=== PATIENT | female | born 1970 | race Caucasian/White ===

== ENCOUNTER → 2017-11-06 | Outpatient (CLI) | payer BC ==
[2017-11-06 11:08] LABS: Basophils # (A) 0.1 k/uL (0-0.2); Basophils % (A) 1 %; Eosinophils # (A) 0.3 k/uL (0-0.7); Eosinophils % (A) 4 %; HCT 38.3 % (34.0-46.0); HGB 13.3 gm/dL (11.4-16.0); Lymphocytes # (A) 2.3 k/uL (1.0-4.8); Lymphocytes % (A) 31 %; MCH 29.2 pg (25.0-35.0); MCHC 34.6 g/dL (31.0-37.0); MCV 84.3 fL (80.0-100.0); Mean Platelet Volume 6.5; Monocytes # (A) 0.4 k/uL (0-1.0); Monocytes % (A) 6 %; Neutrophils # (A) 4.2 k/uL (1.3-7.7); Neutrophils % (A) 56 %; Platelet Count 351 k/uL (150-450); RBC 4.54 m/uL (3.80-5.40); RDW 12.7 % (11.5-15.5); WBC 7.5 k/uL (3.8-10.6)
[2017-11-06 11:14] LABS: Anion Gap 10 mmol/L; Blood Urea Nitrogen 12 mg/dL (7-17); Carbon Dioxide 27 mmol/L (22-30); Chloride 103 mmol/L (98-107); Glucose 82 mg/dL (74-99); Potassium 4.1 mmol/L (3.5-5.1); Sodium 140 mmol/L (137-145)
== END ==
LOC: LABPAT 10:31
PROVIDERS: ATTEND Obstetrics & Gynecology
DX: Z01.818 Encounter for other preprocedural examination (principal); I10 Essential (primary) hypertension; N94.6 Dysmenorrhea, unspecified
CPT/HCPCS: 80051; 82565; 82947; 84520; 85025; 87086; 93005

== ENCOUNTER 2017-11-15 05:47 | Observation (INO) | payer BC ==
[2017-11-04 09:01] VITALS: BMI 33.6
[~2017-11-15 05:47] MED LIST: DEXAMETHASONE SOD PHOSPHATE 10 MG/ML 1 ML VIAL IV ONE; MIDAZOLAM 2 MG/2 ML VIAL IV PRN; MORPHINE SULFATE 2 MG/ML SYRINGE IV PRN; SCOPOLAMINE 1.5MG/72HR PATCH TRANSDERM ONE; fentaNYL (PF) 50 MCG/ML 2 ML AMP IV PRN
[2017-11-15] MEDS: LACTATED RINGERS 1,000 ML IV SCH ×4 (06:41→23:38)
[2017-11-15] MEDS: ONDANSETRON ODT 4 MG TAB PO ONE ×2 (06:53→12:48)
[2017-11-15] MEDS: ceFAZolin IN SWFI 2 GM/20 ML SYRINGE IVP ONE ×2 (07:20→07:45)
[2017-11-15] MEDS ORDERED: BUPIVACAIN-EPI 0.5%-1:200,000 30 ML VIAL SQ ONE ×2 (07:21→09:48)
[2017-11-15] MEDS ORDERED: fentaNYL (PF) 50 MCG/ML 2 ML AMP ONE (07:30)
[2017-11-15] MEDS ORDERED: GLYCOPYRROLATE 0.2 MG/ML 2 ML VIAL ONE (07:30)
[2017-11-15] MEDS ORDERED: LIDOCAINE 1% INJ 10MG/ML (20 ML MDV) ONE (07:30)
[2017-11-15] MEDS ORDERED: MIDAZOLAM 2 MG/2 ML VIAL ONE (07:30)
[2017-11-15] MEDS ORDERED: PROPOFOL 10 MG/ML 20 ML VIAL IV ONE (07:30)
[2017-11-15] MEDS ORDERED: ePHEDrine SULFATE/0.9% NACL/PF 50 MG/5 ML SYRINGE IV ONE (07:30)
[2017-11-15] MEDS ORDERED: ROCURONIUM BROMIDE 10 MG/ML 10 ML VIAL IV ONE (07:30)
[2017-11-15] MEDS ORDERED: NEOSTIGMINE 1 MG/ML 10 ML VIAL ONE (07:30)
[2017-11-15] MEDS ORDERED: MORPHINE SULFATE 10 MG/ML SYRINGE ONE (07:30)
[2017-11-15] MEDS ORDERED: LACTATED RINGERS 1,000 ML IV ONE (08:48)
[2017-11-15] MEDS ORDERED: Acetaminophen-Codeine 300-30mg TAB PO PRN ×2 (09:49)
[2017-11-15] MEDS ORDERED: SIMETHICONE 80 MG CHEWABLE PO PRN (09:49)
[2017-11-15] MEDS ORDERED: METOCLOPRAMIDE 5 MG/ML 2 ML VIAL IVP PRN (09:49)
[2017-11-15] MEDS ORDERED: IBUPROFEN 600 MG TAB PO PRN (09:49)
[2017-11-15] MEDS ORDERED: diphenhydrAMINE 50 MG/ML 1 ML VIAL IVP PRN (09:49)
--- NOTE | 2017-11-15 09:49 | P.OP ---
Date of Procedure: 11/15/17 Preoperative Diagnosis: Dysmenorrhea Hypertension Family history of breast cancer Postoperative Diagnosis: Same Procedure(s) Performed: Robotic-assisted laparoscopic assisted vaginal hysterectomy with bilateral salpingo-oophorectomy Anesthesia: JUANA Surgeon: Linda Munoz Technical Consultant #1: Bhavya Webster Estimated Blood Loss (ml): 10 IV fluids (ml): 1,400 Urine output (ml): 450 Pathology: other (Uterus, bilateral fallopian tubes and ovaries) Condition: stable Disposition: PACU Operative Findings: Somewhat enlarged, boggy uterus with scarring consistent with previous bilateral tubal ligation. Normal-appearing bilateral fallopian tubes and ovaries. Description of Procedure: After the patient and her family were met in the preoperative holding area and we had a further discussion about pros and cons of removal of ovaries, she did consent to bilateral suppurative oophorectomy. She was then taken to the operating room where anesthetic was administered without incident. She was in positioned, prepped and draped in the low lithotomy position. Uterine manipulator, V care, was on placed without difficulty per protocol. Hernandez catheter was placed in the bladder. Attention was then turned to the abdomen. A supraumbilical skin incision was made and the abdomen was manually elevated. Veress needle was inserted and saline drop test indicated intraperitoneal placement. Initial on intradomal filling pressure was 3 mm. The abdomen was then insufflated to a total filling pressure of 15 mm of CO2 gas. Veress needle was removed and the previous optical trocar was then utilized to introduce the 5 mm camera. Under direct visualization left and right da Maryann 7 mm ports were placed and a 10 mm assistant editor port in the left upper quadrant was placed. The robot was then docked in the usual fashion without difficulty. #1 had a monopolar tessie and arm #2 had bipolar [place] graspers. The pelvis was inspected as was the upper abdomen. There was some scarring in both adnexa consistent with a previous history of tubal ligation. The right cornua was grasped and the right infundibulopelvic ligament was sequentially cauterized and cut. The right round ligament was sequentially cauterized and cut. The right broad ligament was entered and the anterior leaf was dissected down to the level of the bladder flap. There was scarring consistent with her previous 2 sections. This was carefully sharply dissected away. The uterine vasculature on the right was skeletonized and sequentially cauterized. Attention was then turned to the left side where there was some additional scarring that was carefully dissected away with monopolar tessie. The infundibular pelvic ligament was then identified and was sequentially cauterized and cut. The left round ligament was sequentially cauterized and cut allowing entry into the broad ligament. The anterior leaf of the broad ligament was then dissected down to the level of the bladder flap. The bladder was gently finger dissected away from the lower uterine segment and cervix. There was more scarring on the left aspect of the right. The left uterine vascularity was carefully sequentially cauterized. The uterus did osbaldo appropriately. An anterior colpotomy was then made in the V care Was visualized. This was used as a guide to circumferentially create the colpotomy. Once sclerotomy was made and the uterus was delivered into the vagina. Instruments were changed and the needle rear load truck driver and grasper were reintroduced. Self locking Vicryl suture was then introduced and the cuff was closed in running fashion. The cuff was completely closed copious suction irrigation was undertaken and all surgical sites were visualized. Hemostasis was noted. Attention was then turned to cystoscopy. The 30 cystoscope was introduced into the bladder after the Hernandez catheter was removed immediate spill was noted from both the left and right ureter. The internal bladder structure looked normal with no evidence of bleeding or suture material. Cystoscope was then removed and the Hernandez catheter was replaced. The da Maryann robot was then undocked and all ports removed after the abdomen was desufflated of CO2 gas. All the abdominal ports were infused with half percent lidocaine and closed in a subcuticular fashion. Inspection of the vagina revealed no vaginal bleeding. The patient was awoken from anesthetic without incident and transported recovery area in stable condition. All counts reported to me as correct by the operating room staff.
[2017-11-15] MEDS: KETOROLAC 30 MG/ML 1 ML VIAL IVP PRN ×2 (13:35→19:56)
[2017-11-15] MEDS ORDERED: amLODIPine 5 MG TAB PO SCH (21:00)
[2017-11-15] MEDS: SENNOSIDES-DOCUSATE SODIUM 1 EACH TAB PO SCH (23:38)
[2017-11-16 07:56] LABS: Basophils % (A) 0 %; Eosinophils # (A) 0.1 k/uL (0-0.7); Eosinophils % (A) 0 %; HCT 34.1 % (34.0-46.0); HGB 11.9 gm/dL (11.4-16.0); Lymphocytes # (A) 2.6 k/uL (1.0-4.8); Lymphocytes % (A) 19 %; MCH 28.9 pg (25.0-35.0); MCHC 34.8 g/dL (31.0-37.0); MCV 83.1 fL (80.0-100.0); Mean Platelet Volume 6.7; Monocytes # (A) 0.7 k/uL (0-1.0); Monocytes % (A) 5 %; Neutrophils # (A) 10.1 k/uL (1.3-7.7); Neutrophils % (A) 74 %; Platelet Count 340 k/uL (150-450); RDW 12.5 % (11.5-15.5); WBC 13.7 k/uL (3.8-10.6)
--- NOTE | 2017-11-16 08:21 | P.DS ---
Providers Date of admission: 11/15/17 23:44 Expected date of discharge: 11/16/17 Attending physician: Linda Munoz Primary care physician: Stated None - Discharge Diagnosis(es) (1) Dysmenorrhea Current Visit: Yes Status: Acute (2) Hypertension Current Visit: Yes Status: Acute (3) Family history of breast cancer Current Visit: Yes Status: Acute Hospital Course: This is a 46-year-old woman who had a history of significant cyclic dysmenorrhea status post endometrial ablation. She failed medical management secondary to hypertension on oral contraceptive pills. She says a strong family history of breast cancer. She therefore desired definitive surgical management of her dysmenorrhea. She was admitted on 11/15/2017 and went to the operating room where she underwent an uncomplicated robotic-assisted laparoscopic assisted vaginal hysterectomy, bilateral salpingo-oophorectomy and cystoscopy. Findings at the time of surgery were consistent with history of bilateral tubal ligation and section 2. The uterus was enlarged and consistent with probable adenomyosis. Both ovaries appeared grossly normal. Please see the operative report for details. Her postoperative course was unremarkable. By the evening of postoperative day 0 her Hernandez catheter was removed and she was able to void spontaneously. By postoperative day #1 she continued to do well. Her pain was well-controlled with oral pain medications. She is able to ambulate and void without difficulty. She was tolerating a general diet. Her incisions all appeared well healing. Her abdominal exam was benign. She had no vaginal bleeding. She was therefore discharged home with routine instructions for postoperative care and follow-up. Procedures: Robotic-assisted laparoscopic assisted vaginal hysterectomy, bilateral salpingo- oophorectomy, cystoscopy Patient Condition at Discharge: Good Plan - Discharge Summary Discharge Rx Participant: Yes New Discharge Prescriptions: New Acetaminophen-Codeine 300-30mg [Tylenol w/codeine #3] 1 each PO Q4HR PRN #10 tab PRN Reason: Moderate Pain Estradiol [Estradiol 0.1 MG Patch] 1 patch TRANSDERM Q7DAYS #4 patch Continue Losartan-Hctz 50-12.5 mg [Hyzaar 50-12.5] 1 each PO QAM amLODIPine BESYLATE [Norvasc] 5 mg PO HS Ibuprofen [Motrin] 800 mg PO Q6HR PRN #30 tab PRN Reason: Pain Discontinued Norethindrone-E.estradiol-Iron [Loestrin Fe 1-20 Tablet] 1 tab PO DAILY Discharge Medication List Losartan-Hctz 50-12.5 mg [Hyzaar 50-12.5] 1 each PO QAM 11/04/17 [History] amLODIPine BESYLATE [Norvasc] 5 mg PO HS 11/04/17 [History] Acetaminophen-Codeine 300-30mg [Tylenol w/codeine #3] 1 each PO Q4HR PRN #10 tab 11/16/17 [Rx] Estradiol [Estradiol 0.1 MG Patch] 1 patch TRANSDERM Q7DAYS #4 patch 11/16/17 [ Rx] Ibuprofen [Motrin] 800 mg PO Q6HR PRN #30 tab 11/16/17 [Rx] Follow up Appointment(s)/Referral(s): Linda Munoz MD [STAFF PHYSICIAN] - 2 Weeks Activity/Diet/Wound Care/Special Instructions: Call the office with any concerning signs or symptoms including heavy vaginal bleeding, foul vaginal discharge, fever greater than 100.5, severe abdominal or pelvic pain, redness or swelling of the lower extremities. No heavy lifting or vigorous exercise until seen in follow-up. Nothing in the vagina, no intercourse for 8 weeks postoperatively. Discharge Disposition: HOME SELF-CARE
[2017-11-16] MEDS ORDERED: LOSARTAN-HCTZ 50-12.5 MG 1 EACH TAB PO SCH (09:00)
[2017-11-16] MEDS: LACTATED RINGERS 1,000 ML IV SCH (09:00)
[2017-11-16 09:04] VITALS: BP 139/75; PULSE 57; RESP 18; TEMP 97.9
[2017-11-16] MEDS: SENNOSIDES-DOCUSATE SODIUM 1 EACH TAB PO SCH (10:32)
== END 2017-11-16 10:15 | disposition home or self-care (01) ==
LOC: OR 05:47 → 4FBP 10:04 → OR 23:44 → 4FBP 23:44
PROVIDERS: ADMIT Obstetrics & Gynecology; ATTEND Obstetrics & Gynecology
DX: N80.0 Endometriosis of uterus (principal); D25.2 Subserosal leiomyoma of uterus; N84.0 Polyp of corpus uteri; N83.202 Unspecified ovarian cyst, left side; N83.201 Unspecified ovarian cyst, right side; I10 Essential (primary) hypertension; Z80.3 Family history of malignant neoplasm of breast; J45.909 Unspecified asthma, uncomplicated; Z79.899 Other long term (current) drug therapy; Z79.1 Long term (current) use of non-steroidal anti-inflammatories (NSAID); Z79.3 Long term (current) use of hormonal contraceptives; Z88.1 Allergy status to other antibiotic agents; Z98.51 Tubal ligation status
CPT/HCPCS: 81025; 86900; 86901; 85025; 86850; 88307; 58552; G0378 ×2; J2250; J1100; J2710; J2270; J2001; J3010; J1885; J2704; J0690

== ENCOUNTER → 2017-12-25 | Outpatient (CLI) | payer BC | END | disposition home or self-care (01) | LOC: LABWHC1 11:27 | PROVIDERS: ATTEND Obstetrics & Gynecology | DX: N95.9 Unspecified menopausal and perimenopausal disorder (principal) | CPT/HCPCS: 36415; 82670; 83001; 84403 ==

== ENCOUNTER → 2018-09-28 | Outpatient (CLI) | payer BC ==
[2018-09-28 19:31] LABS: Progesterone <0.2 ng/mL
== END ==
LOC: LABWHC1 12:01
PROVIDERS: ATTEND Obstetrics & Gynecology
DX: N95.1 Menopausal and female climacteric states (principal)
CPT/HCPCS: 36415; 82670; 83001; 84144; 84403

== ENCOUNTER → 2018-11-04 | Outpatient (CLI) | payer BC ==
--- NOTE | 2018-11-07 11:57 | MM ---
Reason for exam: screening (asymptomatic). Last mammogram was performed 2 years and 6 months ago. History: Family history of breast cancer in mother, breast cancer in sister, and breast cancer in grandmother. Physical Findings: A clinical breast exam by your physician is recommended on an annual basis and results should be correlated with mammographic findings. MG 3D Screening Mammo W/Cad Bilateral CC and MLO view(s) were taken. Prior study comparison: May 15, 2016, mammogram. There are scattered fibroglandular densities. There is chronic nodularity in the left breast. There is no discrete abnormality. ASSESSMENT: Benign, BI-RAD 2 RECOMMENDATION: Routine screening mammogram of both breasts in 1 year.
== END | disposition home or self-care (01) ==
LOC: RADMAMWWP 09:01
PROVIDERS: ATTEND Obstetrics & Gynecology
DX: Z12.31 Encounter for screening mammogram for malignant neoplasm of breast (principal); Z80.3 Family history of malignant neoplasm of breast
CPT/HCPCS: 77063; 77067

== ENCOUNTER → 2020-06-24 | Outpatient (CLI) | payer BC ==
--- NOTE | 2020-06-25 11:09 | MM ---
Reason for exam: screening (asymptomatic). Last mammogram was performed 1 year and 8 months ago. History: Family history of breast cancer in mother, breast cancer in sister, and breast cancer in grandmother. Physical Findings: A clinical breast exam by your physician is recommended on an annual basis and results should be correlated with mammographic findings. MG 3D Screening Mammo W/Cad Bilateral CC and MLO view(s) were taken. Prior study comparison: November 04, 2018, bilateral MG 3d screening mammo w/cad. May 15, 2016, mammogram. The breast tissue is heterogeneously dense. This may lower the sensitivity of mammography. Finding: There is a 5 mm equal density (isodense) mass in the central position of the left breast on CC view only. There is a chronic nodularity in the left breast. ASSESSMENT: Incomplete: need additional imaging evaluation, BI-RAD 0 RECOMMENDATION: Special view mammogram of the left breast. If lesion persists on supplemental views, image directed ultrasound is recommended. [facility] will attempt to contact patient to return for supplemental views and ultrasound if indicated.
== END | disposition home or self-care (01) ==
LOC: RADMAMWWP 15:45
PROVIDERS: ATTEND Obstetrics & Gynecology
DX: Z12.31 Encounter for screening mammogram for malignant neoplasm of breast (principal)
CPT/HCPCS: 77063; 77067

== ENCOUNTER → 2020-06-26 | Outpatient (CLI) | payer BC ==
--- NOTE | 2020-06-26 09:28 | MM ---
Reason for exam: additional evaluation requested from abnormal screening. Last mammogram was performed less than 1 month ago. History: Family history of breast cancer in mother at age 65, breast cancer in sister at age 45, and breast cancer in grandmother. Took hormonal contraceptives for 10 years. Physical Findings: Nurse did not find any significant physical abnormalities on exam. MG 3D Work Up W/Cad LT Spot compression CC, spot compression MLO, and LM view(s) were taken of the left breast. Prior study comparison: June 24, 2020, bilateral MG 3d screening mammo w/cad. November 04, 2018, bilateral MG 3d screening mammo w/cad. There are scattered fibroglandular densities. There is no discrete abnormality. These results were verbally communicated with the patient and result sheet given to the patient on 06/26/20. ASSESSMENT: Benign, BI-RAD 2 RECOMMENDATION: Return to routine screening mammogram schedule for both breasts.
== END | disposition home or self-care (01) ==
LOC: RADMAMWWP 08:08
PROVIDERS: ATTEND Obstetrics & Gynecology
DX: R92.8 Other abnormal and inconclusive findings on diagnostic imaging of breast (principal)
CPT/HCPCS: 77061; 77065

== ENCOUNTER → 2021-08-15 | Outpatient (CLI) | payer BC ==
--- NOTE | 2021-08-15 13:11 | MM ---
Reason for exam: screening (asymptomatic). Last mammogram was performed 1 year and 2 months ago. History: Patient is postmenopausal. Family history of breast cancer in mother at age 65, breast cancer in sister at age 45, and breast cancer in grandmother. Took hormonal contraceptives for 10 years. Took estrogen for 2 years. Took progesterone for 2 years. Physical Findings: A clinical breast exam by your physician is recommended on an annual basis and results should be correlated with mammographic findings. MG 3D Screening Mammo W/Cad Bilateral CC and MLO view(s) were taken. Prior study comparison: June 26, 2020, left breast MG 3d work up w/cad LT. June 24, 2020, bilateral MG 3d screening mammo w/cad. There are scattered fibroglandular densities. Finding: There are typically benign round calcifications in both breasts. There is no discrete abnormality. ASSESSMENT: Benign, BI-RAD 2 RECOMMENDATION: Routine screening mammogram of both breasts in 1 year.
== END | disposition home or self-care (01) ==
LOC: RADMAMWWP 10:14
PROVIDERS: ATTEND Obstetrics & Gynecology
DX: Z09 Encounter for follow-up examination after completed treatment for conditions other than malignant neoplasm (principal); Z80.3 Family history of malignant neoplasm of breast
CPT/HCPCS: 77063; 77067

== ENCOUNTER → 2023-10-06 | Outpatient (CLI) | payer BC ==
--- NOTE | 2023-10-06 18:43 | MM ---
Reason for Exam: Screening (asymptomatic). Last mammogram was performed 1 year(s) and 1 month(s) ago. Patient History: Menarche at age 12. First Full-Term at age 28. Late child-bearing (after 28). Left ovary removed at age 46. Right ovary removed at age 46. Hysterectomy at age 46. Postmenopausal. Patient has history of breast feeding. Currently using Estrogen, starting at age 48. Progesterone, starting at age 48. Patient used Hormonal Contraceptives for 10 years. Maternal grandmother had breast cancer, age 50. Sister had breast cancer, age 45. Mother had breast cancer, age 65. Risk Values: Montez 5 year model risk: 3.1%. NCI Lifetime model risk: 21.0%. Prior Study Comparison: 06/26/2020 Left Diagnostic Mammogram, [facility]. 08/15/2021 Bilateral Screening Mammogram, [facility]. 09/16/2022 Bilateral MG 3D screening mammo w/cad, [facility]. Tissue Density: There are scattered areas of fibroglandular density. Findings: Analyzed By CAD. There is no suspicious group of microcalcifications or new suspicious mass in either breast. Overall Assessment: Negative, BI-RAD 1 Management: Screening Mammogram of both breasts in 1 year. SEE NOTE BELOW IN REGARDS TO PATIENT'S INCREASED 5 YEAR MONTEZ SCORE AND INCREASED LIFETIME RISK SCORE. Patient should continue monthly self-breast exams. A clinical breast exam by your physician is recommended on an annual basis. This exam should not preclude additional follow-up of suspicious palpable abnormalities. Note on Montez scores and lifetime risk: 1. A Montez score greater than 3% is considered moderate risk. If this is the case, consider specialist referral to assess eligibility for a risk reducing agent. 2. If overall lifetime risk for the development of breast cancer is 20% or higher, the patient may qualify for future screening with alternating mammogram and breast MRI. Electronically signed and approved by: Colleen Hanson M.D. Radiologist
== END | disposition home or self-care (01) ==
LOC: RADMAMWWP 09:41
PROVIDERS: ATTEND Obstetrics & Gynecology
DX: Z12.31 Encounter for screening mammogram for malignant neoplasm of breast (principal); Z78.0 Asymptomatic menopausal state; Z80.3 Family history of malignant neoplasm of breast
CPT/HCPCS: 77063; 77067

== ENCOUNTER → 2024-11-15 | Outpatient (CLI) | payer BC ==
--- NOTE | 2024-11-15 10:10 | MM ---
Reason for Exam: Screening (asymptomatic). Last mammogram was performed 1 year(s) and 1 month(s) ago. Patient History: Menarche at age 12. First Full-Term at age 28. Late child-bearing (after 28). Left ovary removed at age 46. Right ovary removed at age 46. Hysterectomy at age 46. Postmenopausal. Patient has history of breast feeding. Currently using Estrogen, starting at age 48. Progesterone, starting at age 48. Patient used Hormonal Contraceptives for 10 years. Maternal grandmother had breast cancer, age 50. Sister had breast cancer, age 45. Mother had breast cancer, age 65. Risk Values: Adry 5 year model risk: 3.2%. NCI Lifetime model risk: 20.6%. Prior Study Comparison: 08/15/2021 Bilateral Screening Mammogram, [facility]. 09/16/2022 Bilateral MG 3D screening mammo w/cad, [facility]. 10/06/2023 Bilateral MG 3D screening mammo w/cad, [facility]. Tissue Density: There are scattered areas of fibroglandular density. Findings: Analyzed By CAD. There is no suspicious group of microcalcifications or new suspicious mass in either breast. Overall Assessment: Negative, BI-RAD 1 Management: Screening Mammogram of both breasts in 1 year. . Patient should continue monthly self-breast exams. A clinical breast exam by your physician is recommended on an annual basis. This exam should not preclude additional follow-up of suspicious palpable abnormalities. Note on Adry scores and lifetime risk: 1. A Adry score greater than 3% is considered moderate risk. If this is the case, consider specialist referral to assess eligibility for a risk reducing agent. 2. If overall lifetime risk for the development of breast cancer is 20% or higher, the patient may qualify for future screening with alternating mammogram and breast MRI. [facility], , 11/15/2024 10:07 AM. Electronically signed and approved by: Dawood Hogan M.D. Radiologis
== END | disposition home or self-care (01) ==
LOC: RADMAMWWP 09:23
PROVIDERS: ATTEND Obstetrics & Gynecology
DX: Z12.31 Encounter for screening mammogram for malignant neoplasm of breast (principal); R92.323 Mammographic fibroglandular density, bilateral breasts; Z92.0 Personal history of contraception; Z80.3 Family history of malignant neoplasm of breast; Z78.0 Asymptomatic menopausal state
CPT/HCPCS: 77063; 77067